=== PATIENT | male | born 1955 | race Caucasian/White ===

== ENCOUNTER 2024-02-04 11:00 | Emergency (ER) | payer MEDICARE, OTHER ==
[2024-02-04 11:06] VITALS: BP 135/71; PULSE 99
[2024-02-04 11:54] LABS: BASOPHILS ABSOLUTE AUTO 0.03 K/uL (0.00-0.20); BASOPHILS PERCENT AUTO 0.3 % (0.0-2.0); EOSINOPHILS ABSOLUTE AUTO 0.02 K/uL (0.00-0.50); EOSINOPHILS PERCENT AUTO 0.2 % (0.0-5.0); HEMATOCRIT 39.9 % (39.0-49.0); HEMOGLOBIN 13.7 g/dL (13.1-16.8); LYMPHOCYTES ABSOLUTE AUTO 1.41 K/uL (0.50-3.50); LYMPHOCYTES PERCENT AUTO 12.8 % (10.0-50.0); MEAN CORPUSCULAR HEMOGLOBIN 31.8 pg (28.2-33.3); MEAN CORPUSCULAR HGB CONC 34.3 g/dL (31.7-36.0); MEAN CORPUSCULAR VOLUME 92.6 fL (84.0-98.0); MONOCYTES ABSOLUTE AUTO 1.21 K/uL (0.00-1.00); NEUTROPHILS ABSOLUTE AUTO 8.37 K/uL (1.40-7.00); NEUTROPHILS PERCENT AUTO 75.7 % (45.0-80.0); PLATELET COUNT,PLT 306 K/uL (150-350); RED BLOOD CELL COUNT 4.31 M/uL (4.33-5.41); RED CELL DISTRIBUTION WIDTH 12.3 % (11.2-14.1)
[2024-02-04 12:14] LABS: ALBUMIN 3.9 g/dL (3.4-5.0); ANION GAP 10.3 meq/L (7-15); BILIRUBIN TOTAL 1.5 mg/dL (0.2-1.0); CALCIUM 8.7 mg/dL (8.5-10.1); CREATININE 1.02 mg/dL (0.51-1.17); EST CRCL DRUG DOSING (CG) 73.56 mL/min; ETHANOL BLOOD MEDICAL 0.001 g/dL (0.000-0.080); MAGNESIUM 2.2 mg/dL (1.8-2.4); POTASSIUM,K 3.3 mmol/L (3.5-5.1); PROTEIN TOTAL,TP 6.7 g/dL (6.4-8.2)
[2024-02-04 12:51] LABS: APPEARANCE,URINE SLIGHTLY CLOUDY; LEUKOCYTE ESTERASE,URINE NEGATIVE (NEGATIVE); OCCULT BLOOD,URINE NEGATIVE (NEGATIVE); PROTEIN,URINE 30 mg/dL (NEGATIVE)
[2024-02-04 13:03] LABS: AMPHETAMINES SCREEN, URINE NEGATIVE (NEGATIVE); BARBITURATE SCREEN,URINE NEGATIVE (NEGATIVE); BENZODIAZEPINES SCREEN,URINE NEGATIVE (NEGATIVE); COCAINE METABOLITES,URINE NEGATIVE (NEGATIVE); EDDP,URINE SCREEN NEGATIVE (NEGATIVE); METHAMPHETAMINES SCREEN, URINE NEGATIVE (NEGATIVE); TCA SCREEN,URINE NEGATIVE (NEGATIVE); THC SCREEN,URINE 50 NG/ML NEGATIVE (NEGATIVE)
[2024-02-04 13:05] LABS: BUPRENORPHINE SCREEN,URINE NEGATIVE (NEGATIVE); OXYCODONE SCREEN,URINE NEGATIVE (NEGATIVE)
[2024-02-04 13:12] LABS: COLOR,URINE AMBER; EPITHELIAL CELLS,URINE RARE /LPF; RBC,URINE 0-5 /HPF; WBC,URINE 0-5 /HPF
[2024-02-04 13:13] LABS: BACTERIA,URINE FEW /HPF (NONE TO FEW); MUCUS,URINE MANY /LPF (NEGATIVE)
[2024-02-04] MEDS: Potassium Chloride 20 MEQ Tab.ER PO ONE (13:32)
== END 2024-02-04 14:00 | disposition home or self-care (01) ==
LOC: LL.ED 11:00
DX: G20.A1 Parkinson's disease without dyskinesia, without mention of fluctuations (principal); G44.89 Other headache syndrome; R44.1 Visual hallucinations; I10 Essential (primary) hypertension; Z87.891 Personal history of nicotine dependence; Z79.899 Other long term (current) drug therapy; Z88.0 Allergy status to penicillin
CPT/HCPCS: 36415; 72040; 80053; 80305-QW; 80307; 81001; 83735; 85025; 99285; A9270-GY

== ENCOUNTER 2024-05-04 09:37 | Day surgery (SDC) | payer MEDICARE, OTHER ==
[~2024-05-04 09:37] MED LIST: Lactated Ringers 1,000 ML IV SCH; Midazolam 1 MG/ML 2 ML SDV ONE; Propofol 200 MG/20 ML SDV ONE; Sodium Chloride 0.9% 10 ML Syringe FLUSH PRN
== END 2024-05-04 10:30 | disposition home or self-care (01) ==
LOC: LL.SDS 09:37
PROVIDERS: ATTEND Surgery
DX: R19.5 Other fecal abnormalities (principal); Z53.8 Procedure and treatment not carried out for other reasons; G20.A1 Parkinson's disease without dyskinesia, without mention of fluctuations; Z79.899 Other long term (current) drug therapy

== ENCOUNTER 2024-11-01 01:06 | Emergency (ER) | payer MEDICARE, OTHER ==
[2024-11-01 01:20] LABS: BASOPHILS ABSOLUTE AUTO 0.03 K/uL (0.00-0.20); BASOPHILS PERCENT AUTO 0.5 % (0.0-2.0); EOSINOPHILS ABSOLUTE AUTO 0.05 K/uL (0.00-0.50); EOSINOPHILS PERCENT AUTO 0.8 % (0.0-5.0); HEMATOCRIT 40.5 % (39.0-49.0); HEMOGLOBIN 13.9 g/dL (13.1-16.8); IMMATURE GRAN ABSOLUTE AUTO 0.01 10^3/uL (0.00-0.04); IMMATURE GRAN PERCENT AUTO 0.2 % (0.0-0.4); LYMPHOCYTES ABSOLUTE AUTO 0.94 K/uL (0.50-3.50); LYMPHOCYTES PERCENT AUTO 14.4 % (10.0-50.0); MEAN CORPUSCULAR HGB CONC 34.3 g/dL (31.7-36.0); MEAN CORPUSCULAR VOLUME 93.3 fL (84.0-98.0); MONOCYTES ABSOLUTE AUTO 0.64 K/uL (0.00-1.00); MONOCYTES PERCENT AUTO 9.8 % (2.0-14.0); NEUTROPHILS ABSOLUTE AUTO 4.84 K/uL (1.40-7.00); NEUTROPHILS PERCENT AUTO 74.3 % (45.0-80.0); PLATELET COUNT,PLT 266 K/uL (150-350); RED BLOOD CELL COUNT 4.34 M/uL (4.33-5.41); WHITE BLOOD CELL COUNT,WBC 6.5 K/uL (4.0-10.2)
[2024-11-01 01:40] LABS: ALANINE AMINOTRANSFERASE,ALT 16 U/L (12-78); ALKALINE PHOSPHATASE 81 IU/L (46-116); ASPARTATE AMNIOTRANSFERASE,AST 17 U/L (15-37); BILIRUBIN TOTAL 1.2 mg/dL (0.2-1.0); BLOOD UREA NITROGEN,BUN 23 mg/dL (7-18); CALCIUM 8.8 mg/dL (8.5-10.1); CARBON DIOXIDE,CO2 27.9 mmol/L (21.0-32.0); CHLORIDE,CL 103 mmol/L (98-107); CREATININE 1.01 mg/dL (0.51-1.17); ETHANOL BLOOD MEDICAL 0.006 g/dL (0.000-0.080); GLUCOSE RANDOM 98 mg/dL (70-99); POTASSIUM,K 3.4 mmol/L (3.5-5.1); PROTEIN TOTAL,TP 6.9 g/dL (6.4-8.2); SODIUM,NA 143 mmol/L (136-145)
[2024-11-01 01:41] LABS: ACETAMINOPHEN < 10.0 ug/mL (10.0-30.0); ANION GAP 15.5 meq/L (7-15); ESTIMATED GFR 82 mL/min (>=60)
[2024-11-01 02:04] LABS: APPEARANCE,URINE CLEAR; BILIRUBIN,URINE NEGATIVE (NEGATIVE); COLOR,URINE DARK YELLOW; GLUCOSE,URINE NEGATIVE (NEGATIVE); KETONES,URINE 15 mg/dL (NEGATIVE); LEUKOCYTE ESTERASE,URINE NEGATIVE (NEGATIVE); NITRITE,URINE NEGATIVE (NEGATIVE); OCCULT BLOOD,URINE NEGATIVE (NEGATIVE); PH,URINE 6.5 (5.0-9.0); PROTEIN,URINE NEGATIVE (NEGATIVE)
[2024-11-01 02:23] LABS: AMPHETAMINES SCREEN, URINE NEGATIVE (NEGATIVE); BARBITURATE SCREEN,URINE NEGATIVE (NEGATIVE); BENZODIAZEPINES SCREEN,URINE NEGATIVE (NEGATIVE); COCAINE METABOLITES,URINE NEGATIVE (NEGATIVE); EDDP,URINE SCREEN NEGATIVE (NEGATIVE); METHAMPHETAMINES SCREEN, URINE NEGATIVE (NEGATIVE); TCA SCREEN,URINE NEGATIVE (NEGATIVE); THC SCREEN,URINE 50 NG/ML NEGATIVE (NEGATIVE)
[2024-11-01 02:24] LABS: BUPRENORPHINE SCREEN,URINE NEGATIVE (NEGATIVE); OXYCODONE SCREEN,URINE NEGATIVE (NEGATIVE)
[2024-11-01] MEDS ORDERED: Haloperidol Lactate 5 MG/ML SDV IM PRN (04:10)
[2024-11-01] MEDS: Losartan 50 MG Tab PO ONE (07:18)
[2024-11-01] MEDS: Hydrochlorothiazide 25 MG Tab PO ONE (07:18)
[2024-11-01] MEDS: Carbidopa/Levodopa 25-250 MG Tab PO ONE (07:18)
[2024-11-01] MEDS: Potassium Chloride 10 MEQ Tab.ER PO ONE (07:18)
[2024-11-01] MEDS ORDERED: Carbidopa/Levodopa 10-100 MG Tab PO ONE (08:00)
== END 2024-11-01 08:50 ==
LOC: LL.ED 01:06
DX: R44.1 Visual hallucinations (principal); I10 Essential (primary) hypertension; Z88.0 Allergy status to penicillin; Z79.899 Other long term (current) drug therapy
CPT/HCPCS: 36415; 80053; 80143; 80305-QW; 80307; 81003; 85025; 99284; 99285; A9270-GY

== ENCOUNTER 2025-02-23 15:23 | Emergency (ER) | payer MEDICARE, OTHER ==
[2025-02-23 15:45] LABS: BASOPHILS ABSOLUTE AUTO 0.03 K/uL (0.00-0.20); BASOPHILS PERCENT AUTO 0.4 % (0.0-2.0); EOSINOPHILS ABSOLUTE AUTO 0.06 K/uL (0.00-0.50); EOSINOPHILS PERCENT AUTO 0.8 % (0.0-5.0); HEMATOCRIT 41.1 % (39.0-49.0); HEMOGLOBIN 13.9 g/dL (13.1-16.8); IMMATURE GRAN ABSOLUTE AUTO 0.02 10^3/uL (0.00-0.04); IMMATURE GRAN PERCENT AUTO 0.3 % (0.0-0.4); LYMPHOCYTES ABSOLUTE AUTO 0.99 K/uL (0.50-3.50); LYMPHOCYTES PERCENT AUTO 13.1 % (10.0-50.0); MEAN CORPUSCULAR HEMOGLOBIN 31.6 pg (28.2-33.3); MEAN CORPUSCULAR HGB CONC 33.8 g/dL (31.7-36.0); MEAN CORPUSCULAR VOLUME 93.4 fL (84.0-98.0); MONOCYTES ABSOLUTE AUTO 0.89 K/uL (0.00-1.00); MONOCYTES PERCENT AUTO 11.8 % (2.0-14.0); NEUTROPHILS ABSOLUTE AUTO 5.57 K/uL (1.40-7.00); NEUTROPHILS PERCENT AUTO 73.6 % (45.0-80.0); PLATELET COUNT,PLT 258 K/uL (150-350); RED CELL DISTRIBUTION WIDTH 12.2 % (11.2-14.1); WHITE BLOOD CELL COUNT,WBC 7.6 K/uL (4.0-10.2)
[2025-02-23 16:11] LABS: ALANINE AMINOTRANSFERASE,ALT 14 U/L (12-78); ALBUMIN 3.7 g/dL (3.4-5.0); ALKALINE PHOSPHATASE 68 IU/L (46-116); ANION GAP 10.2 meq/L (7-15); ASPARTATE AMNIOTRANSFERASE,AST 13 U/L (15-37); BILIRUBIN TOTAL 0.7 mg/dL (0.2-1.0); BLOOD UREA NITROGEN,BUN 15 mg/dL (7-18); CALCIUM 8.6 mg/dL (8.5-10.1); CARBON DIOXIDE,CO2 30.2 mmol/L (21.0-32.0); CHLORIDE,CL 103 mmol/L (98-107); CREATININE 0.97 mg/dL (0.51-1.17); EST CRCL DRUG DOSING (CG) 78.71 mL/min; GLUCOSE RANDOM 100 mg/dL (70-99); POTASSIUM,K 3.4 mmol/L (3.5-5.1); PROTEIN TOTAL,TP 6.8 g/dL (6.4-8.2); SODIUM,NA 140 mmol/L (136-145)
[2025-02-23 16:12] LABS: ACETAMINOPHEN < 10.0 ug/mL (10.0-30.0); ESTIMATED GFR 86 mL/min (>=60)
[2025-02-23] MEDS: Losartan 50 MG Tab PO ONE (16:34)
[2025-02-23] MEDS: Hydrochlorothiazide 25 MG Tab PO ONE (16:34)
[2025-02-23 16:57] LABS: AMPHETAMINES SCREEN, URINE NEGATIVE (NEGATIVE); BARBITURATE SCREEN,URINE NEGATIVE (NEGATIVE); BENZODIAZEPINES SCREEN,URINE NEGATIVE (NEGATIVE); COCAINE METABOLITES,URINE NEGATIVE (NEGATIVE); EDDP,URINE SCREEN NEGATIVE (NEGATIVE); METHAMPHETAMINES SCREEN, URINE NEGATIVE (NEGATIVE); TCA SCREEN,URINE NEGATIVE (NEGATIVE); THC SCREEN,URINE 50 NG/ML NEGATIVE (NEGATIVE)
[2025-02-23 16:58] LABS: BUPRENORPHINE SCREEN,URINE NEGATIVE (NEGATIVE); OXYCODONE SCREEN,URINE NEGATIVE (NEGATIVE)
[2025-02-23] MEDS: cloNIDine 0.1 MG Tab PO ONE ×2 (18:04→19:52)
[2025-02-23] MEDS ORDERED: Haloperidol Lactate 5 MG/ML SDV IM PRN (19:48)
[2025-02-23] MEDS ORDERED: Haloperidol 5 MG Tab PO PRN (19:48)
== END 2025-02-23 20:05 ==
LOC: LL.ED 15:23
DX: G20.A1 Parkinson's disease without dyskinesia, without mention of fluctuations (principal); I10 Essential (primary) hypertension; E78.00 Pure hypercholesterolemia, unspecified; Z88.0 Allergy status to penicillin; Z79.899 Other long term (current) drug therapy; Z87.891 Personal history of nicotine dependence; Z91.148 Patient's other noncompliance with medication regimen for other reason
CPT/HCPCS: 36415; 80053; 80143; 80305; 80307; 85025; 99285; A9270; 99284